=== PATIENT | male | born 1965 | race Caucasian/White ===

== ENCOUNTER → 2017-07-16 | Outpatient (CLI) | payer OTHER ==
--- NOTE | 2017-07-17 09:53 | MR ---
EXAMINATION TYPE: MR shoulder RT wo con DATE OF EXAM: 07/16/2017 COMPARISON: NONE HISTORY: Per Pt. X-Rays show poss. tear, Pain Right shoulder for years, pt did not bring outside xray s TECHNIQUE: Multiplanar, multisequence imaging of the right shoulder is performed without contrast. FINDINGS: Rotator Cuff: There is completely retracted tear of distal supraspinatus tendon with stump retraction roughly 4 cm below the acromion seen best on paracoronal image 14 . T here is marked increased signal and thinning of the distal infraspinatus tendon. A few posterior fibe rs are felt intact seen best on parasagittal images. There is fairly moderate moderate to severe atrophy of the teres minor muscle noted. No suspicious qu adrilateral space mass or cyst identified. Other rotator cuff muscle mass is satisfactory. Subscapularis tendon shows heterogeneous increased signal distally. There is abnormal fluid signal ad jacent to anterior aspect humeral head seen best parasagittal image 16. Findings are consistent with partial tear. Acromioclavicular Joint: There is prominent joint space loss and spurring at acromioclavicular joint. There is downsloping type II acromion. Glenohumeral Joint: There is large glenohumeral joint effusion. Labrum: Degenerative increased signal of labrum is present. Biceps Tendon: The long head of biceps is in normal location within bicipital groove. There is focal area of increased signal suggestive of partial tearing intracapsular/extracapsular junction parasagit gamaliel image 14 Bone marrow signal: Subchondral cystic change superolateral humeral head is present. Other: No additional significant abnormality is appreciated. IMPRESSION: 1. Full-thickness retracted tear of supraspinatus tendon. 2. High-grade partial tear of the infraspinatus tendon with tendinosis, few posterior fibers remain i ntact. 3. Partial tear and tendinosis of the subscapularis tendon. 4. Degenerative signal superior labrum. 5. Marked atrophy teres minor muscle. No obvious cause identified. Correlate for quadrilateral space syndrome. 6. Large glenohumeral joint effusion. 7. Partial tear long head of biceps tendon. 8. Type II downsloping acromion and AC joint arthropathy.
== END | disposition home or self-care (01) ==
LOC: RADMRIMAIN 15:49
PROVIDERS: ATTEND Internal Medicine
DX: S46.011A Strain of muscle(s) and tendon(s) of the rotator cuff of right shoulder, initial encounter (principal); S46.211A Strain of muscle, fascia and tendon of other parts of biceps, right arm, initial encounter; M19.011 Primary osteoarthritis, right shoulder

== ENCOUNTER → 2017-08-05 | Outpatient (CLI) | payer OTHER ==
--- NOTE | 2017-08-06 16:51 | EST ---
EXERCISE STRESS DATE OF STUDY: 08/05/2017 AGE: 52 SEX: Male. HT: 70 WT: 194 PROTOCOL: Magnus. STAGE: 4 DURATION OF EXERCISE: 10 minutes 15 seconds. HEART RATE REST: 99 BLOOD PRESSURE REST: 155/87 MAXIMUM HEART RATE ACHIEVED: 144 MAXIMUM BLOOD PRESSURE: 201/91 85% MPHR: 144 100% MPHR: 169 METS: 11.9 INDICATIONS: Abnormal EKG. Chest pain. CLINICAL INFORMATION: STRESS DATA: Pre-testing physical examination showed a heart rate of 99, pressure 155/87 mmHg. Baseline EKG showed sinus mechanism. The patient exercised on the treadmill according to Magnus protocol for a total of 10 minutes and 15 seconds and achieved 11.9 METS with maximum heart rate of 144, which is about 85% of maximum predicted heart rate. Maximum blood pressure was 201/91 mmHg. Clinically the patient did not experience any symptoms of chest pain or discomfort during the testing or in the recovery time. The EKG did not show any significant ST or T-wave abnormalities consistent with ischemia. CONCLUSION: 1. Excellent exercise capacity. 2. Normal EKG in response to exercise. 3. Essentially normal stress test for the patient. MMODL / IJN: [id number] /
== END ==
LOC: RADNMMAIN 10:54
PROVIDERS: ATTEND Internal Medicine
DX: I27.0 Primary pulmonary hypertension (principal)
CPT/HCPCS: 93017

== ENCOUNTER → 2018-08-03 | Outpatient (CLI) | payer OTHER ==
[2018-08-03 15:43] LABS: Basophils % (A) 0 %; Eosinophils # (A) 0.1 k/uL (0-0.7); Eosinophils % (A) 1 %; HGB 14.3 gm/dL (13.0-17.5); Lymphocytes # (A) 1.3 k/uL (1.0-4.8); Lymphocytes % (A) 22 %; MCH 29.5 pg (25.0-35.0); MCHC 33.3 g/dL (31.0-37.0); MCV 88.7 fL (80.0-100.0); Mean Platelet Volume 6.7; Monocytes # (A) 0.3 k/uL (0-1.0); Monocytes % (A) 5 %; Neutrophils # (A) 4.1 k/uL (1.3-7.7); Neutrophils % (A) 70 %; Platelet Count 302 k/uL (150-450); RBC 4.85 m/uL (4.30-5.90); RDW 13.2 % (11.5-15.5); WBC 5.9 k/uL (3.8-10.6)
[2018-08-03 15:53] LABS: INR 0.9 (<1.2); Partial Thromboplastin Time 26.1 sec (22.0-30.0); Prothrombin Time 9.5 sec (9.0-12.0)
[2018-08-03 19:27] LABS: Anion Gap 11.2 mmol/L (4.00-12.00); Carbon Dioxide 25.8 mmol/L (21.6-31.8); Potassium 3.9 mmol/L (3.5-5.5)
== END ==
LOC: LABWHC1 14:46
PROVIDERS: ATTEND Internal Medicine
DX: Z01.812 Encounter for preprocedural laboratory examination (principal); Z00.00 Encounter for general adult medical examination without abnormal findings; I10 Essential (primary) hypertension
CPT/HCPCS: 36415; 80051; 82565; 84520; 85025; 85610; 85730

== ENCOUNTER → 2023-01-24 | Outpatient (CLI) | payer OTHER | END | disposition home or self-care (01) | LOC: LABWHC1 08:56 | PROVIDERS: ATTEND Internal Medicine | DX: Z51.81 Encounter for therapeutic drug level monitoring (principal); Z79.899 Other long term (current) drug therapy | CPT/HCPCS: 36415 ==

== ENCOUNTER → 2023-08-18 | Outpatient (CLI) | payer BC ==
--- NOTE | 2023-08-19 11:21 | CA ---
Transthoracic Echo Report Name: Rasta Ordoñez Age: 58 Gender: M : 1965 Exam Date: 08/18/2023 14:49 Exam Location: [facility] Ht (in): 68 Wt (lb): 194 Ordering Physician: Casey Koo MD Attending/Referring Phys: Casey Koo MD [employer] Laly Lin [facility] Procedure CPT: Indications: R01.1 CARDIAC MURMUR R00.0 TACHYCARDIA Cardiac Hx: Technical Quality: Good Contrast 1: Total Dose (mL): Contrast 2: Total Dose (mL): MEASUREMENTS (Male / Female) Normal Values 2D ECHO LV Diastolic Diameter PLAX 4.7 cm 4.2 - 5.9 / 3.9 - 5.3 cm LV Systolic Diameter PLAX 3.3 cm IVS Diastolic Thickness 1.0 cm 0.6 - 1.0 / 0.6 - 0.9 cm LVPW Diastolic Thickness 1.5 cm 0.6 - 1.0 / 0.6 - 0.9 cm LV Relative Wall Thickness 0.5 RV Internal Dim ED PLAX 2.2 cm LVOT Diameter 1.9 cm LV Diastolic Volume MOD BP 107.8 cm??? 67 - 155 / 56 - 104 cm??? LV Systolic Volume MOD BP 38.5 cm??? 22 - 58 / 19 - 49 cm??? LV Ejection Fraction MOD BP 64.3 % >= 55 % LV Diastolic Volume MOD 4C 95.8 cm??? LV Systolic Volume MOD 4C 34.5 cm??? LV Ejection Fraction MOD 4C 64.0 % LV Diastolic Length 4C 8.4 cm LV Systolic Length 4C 6.9 cm LV Diastolic Volume MOD 2C 111.3 cm??? LV Systolic Volume MOD 2C 42.0 cm??? LV Ejection Fraction MOD 2C 62.3 % LV Diastolic Length 2C 7.7 cm LV Systolic Length 2C 6.5 cm M-MODE Aortic Root Diameter MM 3.0 cm LA Systolic Diameter MM 3.4 cm LA Ao Ratio MM 1.1 AV Cusp Separation MM 1.7 cm DOPPLER AV Peak Velocity 170.6 cm/s AV Peak Gradient 11.6 mmHg AV Mean Velocity 127.5 cm/s AV Mean Gradient 7.1 mmHg AV Velocity Time Integral 37.1 cm LVOT Peak Velocity 114.4 cm/s LVOT Peak Gradient 5.2 mmHg LVOT Velocity Time Integral 26.2 cm LVOT Stroke Volume 75.5 cm??? LVOT Stroke Volume Index 37.4 ml/m??? AV Area Cont Eq vti 2.0 cm??? AV Area Cont Eq pk 1.9 cm??? Mitral E Point Velocity 70.5 cm/s Mitral A Point Velocity 77.5 cm/s Mitral E to A Ratio 0.9 MV Deceleration Time 223.3 ms MV E' Velocity 9.0 cm/s Mitral E to MV E' Ratio 7.8 TR Peak Velocity 182.7 cm/s TR Peak Gradient 13.4 mmHg Right Ventricular Systolic Press 18.4 mmHg FINDINGS Left Ventricle Left ventricular ejection fraction is estimated at 55-60 %. Normal Left ventricular size, wall thickness, systolic function with no obvious regional wall motion abnormalities. Normal Left ventricular diastolic filling pattern. Right Ventricle Normal right ventricular size and function. Right ventricular systolic pressure within normal limits. Right Atrium Normal right atrial size. Left Atrium Normal left atrial size. Mitral Valve Structurally normal mitral valve. Mild mitral regurgitation. No mitral stenosis. Aortic Valve Diffuse thickening (sclerosis) of the aortic valve cusps without reduced excursion. No aortic stenosis. No aortic regurgitation. Tricuspid Valve Structurally normal tricuspid valve. Mild tricuspid regurgitation. No tricuspid stenosis. Pulmonic Valve Structurally normal pulmonic valve. Pericardium No pericardial or pleural effusion. Aorta Normal size aortic root and proximal ascending aorta. CONCLUSIONS 1. Normal left ventricular size and systolic function 2. Mild mitral and tricuspid regurgitation 3. Moderate thickening of the tricuspid aortic valve Previewed by: Dr. Maureen Issa MD (Electronically Signed) Final Date: 19 Aug 2023 11:20
== END | disposition home or self-care (01) ==
LOC: RADECHMAIN 14:41
PROVIDERS: ATTEND Family Medicine
DX: I08.1 Rheumatic disorders of both mitral and tricuspid valves (principal); R00.0 Tachycardia, unspecified; I10 Essential (primary) hypertension
CPT/HCPCS: 93306